=== PATIENT | male | born 1960 | race Caucasian/White ===

== ENCOUNTER 2019-06-15 13:36 | Emergency (ER) | payer OTHER ==
[~2019-06-15] VITALS: Ht 172.7 cm; Wt 104.3 kg
--- NOTE | 2019-06-15 13:49 | NUR ---
PATIENT WAS MSE BY DR ZIEGLER IN ROOM 02B. PATIENT A & O X4.
[2019-06-15] MEDS ORDERED: IBUPROFEN 800 MG TABLET PO ONE (14:00)
[2019-06-15] MEDS ORDERED: IBUPROFEN 800 MG TABLET ONE (14:04)
--- NOTE | 2019-06-15 14:15 | NUR ---
Android Programmer assumes care, AOx4, respiration: easy, pending results and disposition, NAD
--- NOTE | 2019-06-15 15:15 | NUR ---
Patient discharged to home in stable conditon & steady gait. Written and verbal after care instructions given to patient. Patient verbalizes understanding & compliance of instructions.
== END 2019-06-15 15:16 | disposition home or self-care (01) ==
LOC: ER 13:36
DX: S20.211A Contusion of right front wall of thorax, initial encounter (principal); E11.9 Type 2 diabetes mellitus without complications; W01.0XXA Fall on same level from slipping, tripping and stumbling without subsequent striking against object, initial encounter; Y93.89 Activity, other specified; Y92.89 Other specified places as the place of occurrence of the external cause; Y99.8 Other external cause status
CPT/HCPCS: 71101; A4663

== ENCOUNTER 2019-08-15 08:33 | Emergency (ER) | payer OTHER ==
[~2019-08-15] VITALS: Ht 172.7 cm; Wt 104.3 kg
[2019-08-15] MEDS ORDERED: DOCUSATE SODIUM 100 MG/10 ML LIQUID UDC ONE (09:07)
--- NOTE | 2019-08-15 09:14 | NUR ---
PT IS IN ROOM #2B. DR SANTORO EVALUATED THE PT.
[2019-08-15] MEDS ORDERED: DOCUSATE SODIUM 100 MG/10 ML LIQUID UDC OT ONE (09:15)
--- NOTE | 2019-08-15 09:51 | NUR ---
PT's LEFT EAR WAS IRRIGATED WITH WARM NS 0.9% ACCORDING TO DR YVAN GOULD. PT TOLERATED TO PROCEDURE WITHOUT COMPLICATIONS.
--- NOTE | 2019-08-15 10:02 | NUR ---
PT WAS D/C'D TO HOME AFTER DR SANTORO EVALUATION. D/C INSTRUCTIONS GIVEN TO THE PT BY DR SANTORO.
[2019-08-15 10:03] VITALS: BP 138/81
== END 2019-08-15 10:04 | disposition home or self-care (01) ==
LOC: ER 08:33
DX: H61.22 Impacted cerumen, left ear (principal); E11.9 Type 2 diabetes mellitus without complications
CPT/HCPCS: A4217; A4663

== ENCOUNTER 2019-08-28 05:44 | Emergency (ER) | payer OTHER ==
[~2019-08-28] VITALS: Ht 170.2 cm; Wt 106.6 kg
[2019-08-28] MEDS ORDERED: [UNRECOGNIZED DRUG - REMARK] (05:53)
[2019-08-28] MEDS ORDERED: [UNRECOGNIZED DRUG - REMARK] (05:53)
[2019-08-28] MEDS ORDERED: GABA-534 PO (05:53)
--- NOTE | 2019-08-28 05:58 | NUR ---
DR MENDENHALL AT BEDSIDE FOR MSE.
[2019-08-28] MEDS ORDERED: diphenhydrAMINE 50 MG/1 ML VIAL IV ONE (06:00)
[2019-08-28] MEDS ORDERED: methylPREDNISolone SOD SUCC 125 MG/2 ML VIAL IV ONE (06:00)
[2019-08-28] MEDS ORDERED: diphenhydrAMINE 50 MG/1 ML VIAL ONE (06:08)
[2019-08-28] MEDS ORDERED: methylPREDNISolone SOD SUCC 125 MG/2 ML VIAL ONE (06:08)
[2019-08-28] MEDS ORDERED: EPINEPHRINE-PF 1:1000 1 MG/ML AMPUL SQ ONE (06:15)
[2019-08-28] MEDS ORDERED: EPINEPHRINE 1 MG/1 ML AMP ONE (06:24)
--- NOTE | 2019-08-28 07:24 | NUR ---
IV removed. Catheter intact and site benign. Pressure and 4x4 gauze applied to site. No bleeding noted. Patient discharged to home in stable condition and steady gait. Written and verbal after care instructions given to patient. Patient verbalized understanding & compliance of instructions.
[2019-08-31] MEDS ORDERED: PRED20TA PO (16:57)
[2019-08-31] MEDS ORDERED: CLIN300C11 PO (16:57)
== END 2019-08-28 07:26 | disposition home or self-care (01) ==
LOC: ER 05:49
DX: T78.3XXA Angioneurotic edema, initial encounter (principal); I10 Essential (primary) hypertension; E11.9 Type 2 diabetes mellitus without complications; E78.5 Hyperlipidemia, unspecified; Z88.0 Allergy status to penicillin; Z79.899 Other long term (current) drug therapy
CPT/HCPCS: 96374; 96375; 99283; J0171; J1200; J2930; A4663

== ENCOUNTER 2019-08-31 16:41 | Emergency (ER) | payer OTHER ==
[~2019-08-31] VITALS: Ht 172.7 cm; Wt 106.6 kg
[2019-08-31] MEDS ORDERED: DEXAMETHASONE 4 MG TABLET ONE (17:26)
[2019-08-31] MEDS ORDERED: DEXAMETHASONE 0.5 MG/5 ML LIQ UDC PO ONE (17:30)
--- NOTE | 2019-08-31 17:31 | NUR ---
PATIENT WAS SEEN BY . HE IS A/A/O X3 IN NO DISTRESS. MEDICATION GIVEN ORDERED. DC AND FOLLOW UP INSTRUCTIONS GIVEN AND EXPLAINED TO PATIENT WHO STATES HE UNDERSTANDS ALL INSTRUCTIONS
== END 2019-08-31 17:35 | disposition home or self-care (01) ==
LOC: ER 16:42
DX: J02.9 Acute pharyngitis, unspecified (principal); Z60.2 Problems related to living alone; Z79.899 Other long term (current) drug therapy; Z88.1 Allergy status to other antibiotic agents
CPT/HCPCS: 99282; J8540; A4663

== ENCOUNTER 2020-02-04 05:43 | Emergency (ER) | payer MEDICARE, OTHER ==
[~2020-02-04] VITALS: Ht 170.2 cm; Wt 104.3 kg
[~2020-02-04 05:43] MED LIST: CLIN300C11 PO; GABA-534 PO; PRED20TA PO; [UNRECOGNIZED DRUG - REMARK]; [UNRECOGNIZED DRUG - REMARK]
[2020-02-04] MEDS ORDERED: METF-442 PO (05:56)
[2020-02-04] MEDS ORDERED: [UNRECOGNIZED DRUG - REMARK] (05:56)
--- NOTE | 2020-02-04 06:00 | NUR ---
Dr. Spann at bedside for MSE
--- NOTE | 2020-02-04 06:13 | NUR ---
Xray at bedside
[2020-02-04 06:23] LABS: BASOPHILS % (AUTO) 0.7 % (0.0-2.0); EOSINOPHILS # (AUTO) 0.3 K/uL (0.0-0.7); EOSINOPHILS % (AUTO) 4.9 % (0.0-7.0); HEMOGLOBIN 14.9 g/dL (12.5-16.3); LYMPHOCYTES # (AUTO) 2.2 K/uL (20.0-40.0); LYMPHOCYTES % (AUTO) 39.9 % (20.5-51.5); MEAN CORPUSCULAR HEMOGLOBIN 29.7 uug (23.8-33.4); MEAN CORPUSCULAR HGB CONC 35 g/dL (32.5-36.3); MEAN CORPUSCULAR VOLUME 85.6 fL (73.0-96.2); MONOCYTES # (AUTO) 0.6 K/uL (2.0-10.0); MONOCYTES % (AUTO) 10.7 % (0.0-11.0); NEUTROPHILS # (AUTO) 2.4 K/uL (1.8-8.9); NEUTROPHILS % (AUTO) 43.8 % (38.5-71.5); PLATELET COUNT (AUTO) 284 K/uL (152-348); RED BLOOD CELL COUNT(AUTO) 5.02 MIL/uL (4.06-5.63); WHITE BLOOD COUNT (AUTO) 5.5 K/uL (3.6-10.2)
--- NOTE | 2020-02-04 06:24 | NUR ---
Pt BS 216. notified. No new orders at this time
[2020-02-04] MEDS ORDERED: VANCOMYCIN 1G/D5W 200 ML PIGGYBACK IV ONE (06:30)
[2020-02-04 06:31] LABS: CREATININE 1.2 mg/dL (0.6-1.3); POTASSIUM 4.2 mmol/L (3.5-5.1)
[2020-02-04] MEDS ORDERED: VANCOMYCIN IV 200 ML ONE (06:32)
[2020-02-04 06:45] LABS: BILIRUBIN,DIRECT 0.2 mg/dL (0.0-0.2); BILIRUBIN,TOTAL 1.1 mg/dL (0.2-1.0); TOTAL PROTEIN, SERUM 7.7 g/dL (6.4-8.2)
--- NOTE | 2020-02-04 07:07 | NUR ---
report given boubacar lr
[2020-02-04] MEDS ORDERED: NEOMY/BACITRA/POLYMYXIN B OINT UD PACKET TP ONE ×2 (07:46→08:00)
--- NOTE | 2020-02-04 07:56 | NUR ---
IV removed. Catheter intact and site benign. Pressure and 4x4 gauze applied to site. No bleeding noted. Patient discharged to home in stable condition. Written and verbal after care instructions given. Patient verbalizes understanding & compliance of instructions. Stressed follow up with his primary doctor or return to ER for worsening s/s.
== END 2020-02-04 08:01 | disposition home or self-care (01) ==
LOC: ER 05:48
DX: L03.115 Cellulitis of right lower limb (principal); L97.318 Non-pressure chronic ulcer of right ankle with other specified severity; S90.561S Insect bite (nonvenomous), right ankle, sequela; R03.0 Elevated blood-pressure reading, without diagnosis of hypertension; E78.5 Hyperlipidemia, unspecified; E11.9 Type 2 diabetes mellitus without complications; Z79.4 Long term (current) use of insulin
CPT/HCPCS: 36415; 73610; 80048; 80076; 82962; 85025; 85651; 86140; 96365; 99284; J3370; A4663

== ENCOUNTER 2020-02-06 06:14 | Emergency (ER) | payer MEDICARE, OTHER ==
[~2020-02-06 06:14] MED LIST changes: -CLIN300C11 PO; +METF-442 PO; -PRED20TA PO; +[UNRECOGNIZED DRUG - REMARK]
== END 2020-02-06 06:21 | disposition left against medical advice (07) ==
LOC: ER 06:16
DX: Z75.3 Unavailability and inaccessibility of health-care facilities (principal)

== ENCOUNTER 2020-04-29 13:57 | Emergency (ER) | payer MEDICARE, OTHER ==
[~2020-04-29] VITALS: Ht 170.2 cm; Wt 106.6 kg
--- NOTE | 2020-04-29 13:57 | NUR ---
Patient is AOx4, walked in our ER department, shouting loudly in the ER registration window, c/o chest pains and abdominal pains after eating lunch today. Patient was immediately escorted to ER bed 4A, placed on continuous cardiac, BP & spO2 monitors w/alarms set, on & audible.
[2020-04-29] MEDS ORDERED: LIDOCAINE VISCUS 2% 15 ML UDC ONE (14:10)
--- NOTE | 2020-04-29 14:12 | NUR ---
Patient is refusing blood draw@the moment. explained to patient the urgency of the blood draw.
[2020-04-29] MEDS ORDERED: MAG HYDROX/AL HYDROX/SIMETH 30 ML LIQUID UDC ONE (14:13)
[2020-04-29] MEDS ORDERED: ONDANSETRON 4 MG/2 ML VIAL ONE (14:13)
[2020-04-29] MEDS ORDERED: FAMOTIDINE. 20 MG/2 ML VIAL IV ONE ×2 (14:15→14:17)
[2020-04-29] MEDS ORDERED: ONDANSETRON 4 MG/2 ML VIAL IV ONE (14:15)
[2020-04-29] MEDS ORDERED: MORPHINE SULFATE 4 MG/1 ML DISP.SYRIN IV ONE (14:15)
[2020-04-29] MEDS ORDERED: MAG HYDROX/AL HYDROX/SIMETH 30 ML LIQUID UDC PO ONE (14:15)
[2020-04-29] MEDS ORDERED: LIDOCAINE VISCUS 2% 15 ML UDC MM ONE (14:15)
[2020-04-29] MEDS ORDERED: MORPHINE SULFATE 4 MG/1 ML DISP.SYRIN ONE (14:17)
[2020-04-29 14:33] LABS: BASOPHILS % (AUTO) 0.5 % (0.0-2.0); EOSINOPHILS # (AUTO) 0.2 K/uL (0.0-0.7); EOSINOPHILS % (AUTO) 2.8 % (0.0-7.0); HEMATOCRIT 46.4 % (36.7-47.1); HEMOGLOBIN 16.2 g/dL (12.5-16.3); LYMPHOCYTES # (AUTO) 1.1 K/uL (20.0-40.0); LYMPHOCYTES % (AUTO) 13.1 % (20.5-51.5); MEAN CORPUSCULAR HEMOGLOBIN 30.1 uug (23.8-33.4); MEAN CORPUSCULAR HGB CONC 35 g/dL (32.5-36.3); MEAN CORPUSCULAR VOLUME 86.5 fL (73.0-96.2); MONOCYTES # (AUTO) 0.1 K/uL (2.0-10.0); MONOCYTES % (AUTO) 0.9 % (0.0-11.0); NEUTROPHILS # (AUTO) 6.7 K/uL (1.8-8.9); NEUTROPHILS % (AUTO) 82.7 % (38.5-71.5); PLATELET COUNT (AUTO) 245 K/uL (152-348); RED BLOOD CELL COUNT(AUTO) 5.36 MIL/uL (4.06-5.63); WHITE BLOOD COUNT (AUTO) 8.2 K/uL (3.6-10.2)
[2020-04-29 14:38] LABS: CREATININE 1.4 mg/dL (0.6-1.3); POTASSIUM 3.3 mmol/L (3.5-5.1)
[2020-04-29 14:41] LABS: *BILIRUBIN,URIN NEGATIVE (NEGATIVE); *BLOOD, URINE NEGATIVE (NEGATIVE); *CLARITY,URINE CLEAR (CLEAR); *COLOR,URINE YELLOW (YELLOW); *KETONES,URINE TRACE (NEGATIVE); *UROBILINOGEN,URINE 0.2 E.U./dl (NORMAL); LEUKOCYTE ESTERASE ,URINE NEGATIVE (NEGATIVE); NITRITE, URINE NEGATIVE (NEGATIVE); UGLUCOSE 2+ (NEGATIVE)
[2020-04-29] MEDS ORDERED: KETOROLAC TROMETHAMINE 15 MG INJ IVP ONE (14:45)
--- NOTE | 2020-04-29 14:45 | NUR ---
Patient is frequently on his personal cellphone while diagnostic exams are being done. Comfort and safety measures maintained.
[2020-04-29] MEDS ORDERED: KETOROLAC TROMETHAMINE 15 MG INJ ONE (14:47)
[2020-04-29 14:54] LABS: *AMPHETAMINE, URINE NEGATIVE (NEGATIVE); *CANNABINOID, URINE NEGATIVE (NEGATIVE); *COCCAINE, URINE NEGATIVE (NEGATIVE); *OPIATE, URINE POSITIVE (NEGATIVE); *PHENCYCLIDINE SCREEN,URINE NEGATIVE (NEGATIVE)
[2020-04-29] MEDS ORDERED: IV NORMAL SALINE 1000 ML BAG IV ONE (15:00)
[2020-04-29 15:01] LABS: BILIRUBIN,DIRECT 1.2 mg/dL (0.0-0.2); BILIRUBIN,TOTAL 2.3 mg/dL (0.2-1.0); TOTAL PROTEIN, SERUM 8.1 g/dL (6.4-8.2)
--- NOTE | 2020-04-29 15:08 | NUR ---
Patient wants to go home. [email or web address] explaining to patient about possible complications, up to and including , which could occur as a result of leaving the hospital at this time.
--- NOTE | 2020-04-29 15:09 | NUR ---
Extra warm blankets and pillows on. Patient feels a little better and wants to go home.
--- NOTE | 2020-04-29 15:29 | NUR ---
Patient still does not wish to proceed with medical care recommended by Dr. Francis. Patient was given repeated verbal information and written iformation related to possible complications, up to and including , which could occur as a result of leaving the hospital at this time. Patient verbalized understanding of risks involved due to leaving against medical advice. Patient has signed AMA form.
[2020-04-29] MEDS ORDERED: TAMS-3 PO (17:13)
[2020-04-29] MEDS ORDERED: HYDR12.55 PO (17:13)
[2020-04-29] MEDS ORDERED: ATOR40TA PO (17:13)
[2020-04-29 18:32] LABS: BACTERIA,URINE FEW /HPF (NONE SEEN); RBC,URINE 0-3 /HPF (0-3); SQUAMOUS EPITHELIAL CELL,UR FEW /HPF (NONE SEEN); WBC,URINE 0-3 /HPF (0-3)
[2020-04-29] MEDS ORDERED: POTASSIUM CHLORIDE 20 MEQ TAB.PRT.SR PO ONE (20:45)
== END 2020-04-29 15:29 | disposition left against medical advice (07) ==
LOC: ER 13:57
DX: K85.90 Acute pancreatitis without necrosis or infection, unspecified (principal); E11.65 Type 2 diabetes mellitus with hyperglycemia; Z79.4 Long term (current) use of insulin; E78.5 Hyperlipidemia, unspecified; E87.1 Hypo-osmolality and hyponatremia; E87.6 Hypokalemia; R74.01 Elevation of levels of liver transaminase levels; E87.8 Other disorders of electrolyte and fluid balance, not elsewhere classified; E66.9 Obesity, unspecified; Z68.36 Body mass index [BMI] 36.0-36.9, adult; Z87.891 Personal history of nicotine dependence; F11.11 Opioid abuse, in remission
CPT/HCPCS: 36415; 71045; 76705; 80048; 80076; 80307; 81001; 83690; 83880; 84484; 85025; 93005; 96374; 96375; 99285; J1885; J2270; J2405; J3490; 70030-TC; A4663; J7030

== ENCOUNTER 2020-04-29 17:03 | Inpatient (IN) | payer MEDICARE, OTHER ==
[~2020-04-29] VITALS: Ht 170.2 cm; Wt 106.6 kg
[2020-04-29] MEDS ORDERED: ATOR40TA PO (17:13)
[2020-04-29] MEDS ORDERED: TAMS-3 PO (17:13)
[2020-04-29] MEDS ORDERED: HYDR12.55 PO (17:13)
--- NOTE | 2020-04-29 17:29 | NUR ---
Patient is resting comfortably on gurney with eyes closed. Lights dimmed. Extra warm blankets on. Oral swabs provided. NPO maintained. Patient will be admitted to telemetry room 323 , under the care of [facility] hospitalist Dr. rBown. Belonging List completed. COVID -19 swab collected and sent. Nurse Maki accepted nursing report@[id number].
[2020-04-29] MEDS ORDERED: IV LACTATED RINGERS SOLUTION 1,000 ML BAG IV ONE (17:30)
[2020-04-29] MEDS ORDERED: ONDANSETRON 4 MG/2 ML VIAL IV ONE (17:30)
[2020-04-29] MEDS ORDERED: MORPHINE SULFATE 4 MG/1 ML DISP.SYRIN IV ONE (17:30)
[2020-04-29] MEDS ORDERED: ONDANSETRON 4 MG/2 ML VIAL ONE (17:51)
[2020-04-29] MEDS ORDERED: MORPHINE SULFATE 4 MG/1 ML DISP.SYRIN ONE (17:51)
[2020-04-29] MEDS ORDERED: MAGNESIUM HYDROXIDE 30 ML LIQUID UDC PO PRN (18:00)
[2020-04-29] MEDS ORDERED: ONDANSETRON 4 MG/2 ML VIAL IV PRN (18:00)
[2020-04-29] MEDS ORDERED: ACETAMINOPHEN 325 MG TABLET PO PRN (18:00)
[2020-04-29] MEDS ORDERED: IV NS 1000 ML 1,000 ML IV SCH (18:00)
[2020-04-29] MEDS ORDERED: HYDROCODONE/APAP 5-325MG TABLET PO PRN (18:00)
[2020-04-29] MEDS ORDERED: Z GUARD REMEDY PASTE 57 GM TUBE TOP PRN (18:00)
--- NOTE | 2020-04-29 18:20 | NUR ---
Received patient on the floor via a gurney. Patient shows no signs of distress at this time. Belongings lists done and signed and vital signs taken. Patient's BP is initially 167/103 with a HR of 110, upon retake vitals are 166/97 HR 110 oxygen saturation 96% and temperature 100.8. Will start cooling measures with ice packs and i will check eMAR for antipyretics.. Will start IV infusion of NS. Will continue to monitor and endorse to oncoming nurse.
[2020-04-29 18:33] VITALS: BP 166/97
[2020-04-29] MEDS: IV NS 1000 ML 1,000 ML IV PRN (18:45)
--- NOTE | 2020-04-29 19:58 | NUR ---
Patient's blood glucose was 409 in ER no coverage was done. Made DR Brown aware. His orders are to put Accucheck Q6h but no slide in scale. Will clarify order and endorse to oncoming nurse.
[2020-04-29 20:20] VITALS: BP 176/92
[2020-04-29] MEDS ORDERED: POTASSIUM CHLORIDE 20 MEQ TAB.PRT.SR PO ONE (21:00)
[2020-04-29] MEDS: ATORVASTATIN 40 MG TABLET PO SCH (21:24)
[2020-04-29] MEDS: BLOOD SUGAR DIAGNOSTIC 1 EACH STRIP VI SCH ×2 (21:24→23:53)
[2020-04-29] MEDS: GABAPENTIN 300 MG CAPSULE PO SCH (21:24)
[2020-04-29] MEDS: MORPHINE SULFATE 2 MG/1 ML DISP.SYRIN IV PRN (21:31)
--- NOTE | 2020-04-29 23:09 | NUR ---
Received pt resting in bed. AAO x4. No acute distress noted. Blood sugar 296, BP 176/ 92, HR 99. Notified Dr. Brown. As per MD, no new order but to watch and give pain meds as ordered. Pt is NPO except meds. Due meds given as ordered. IV on right hand #20, IVF NS 100 mL/hr. Safety measures maintained. Call light and personal items within reach. Will continue to monitor.
[2020-04-29 23:51] VITALS: BP 115/70
[2020-04-30 05:00] VITALS: BP 113/57
[2020-04-30] MEDS: BLOOD SUGAR DIAGNOSTIC 1 EACH STRIP VI SCH ×4 (05:26→23:59)
[2020-04-30] MEDS: IV NS 1000 ML 1,000 ML IV PRN ×2 (05:26→20:22)
--- NOTE | 2020-04-30 05:39 | NUR ---
Pt kept NPO except meds throughout the night. Monitored blood sugar and BP. BS continues to be elevated, BP stable. No complain of nausea/vomiting. All needs attended to promptly. Addendum: 04/30/20 at 0614 by Alejandra Escobar RN MRI checklist done
[2020-04-30 07:26] LABS: CREATININE 1.5 mg/dL (0.6-1.3); PHOSPHOROUS 3.8 mg/dL (2.5-4.9); POTASSIUM 5.3 mmol/L (3.5-5.1)
--- NOTE | 2020-04-30 07:30 | NUR ---
Received patient resting in bed. Awake alert and oriented times 4. No signs of distress noted at this time. Patient is currently NPO awaiting transport to [place] for MRCP. MRI checklist done. Safety precautions in place with call lights and belongings within reach. Will continue to monitor.
[2020-04-30 07:33] LABS: BASOPHILS % (AUTO) 0.1 % (0.0-2.0); EOSINOPHILS # (AUTO) 0.1 K/uL (0.0-0.7); EOSINOPHILS % (AUTO) 0.5 % (0.0-7.0); HEMATOCRIT 41.1 % (36.7-47.1); HEMOGLOBIN 14.2 g/dL (12.5-16.3); LYMPHOCYTES # (AUTO) 0.6 K/uL (20.0-40.0); LYMPHOCYTES % (AUTO) 3.5 % (20.5-51.5); MEAN CORPUSCULAR HEMOGLOBIN 29.9 uug (23.8-33.4); MEAN CORPUSCULAR HGB CONC 35 g/dL (32.5-36.3); MEAN CORPUSCULAR VOLUME 86.6 fL (73.0-96.2); MONOCYTES # (AUTO) 1.1 K/uL (2.0-10.0); MONOCYTES % (AUTO) 6.5 % (0.0-11.0); NEUTROPHILS # (AUTO) 15.1 K/uL (1.8-8.9); NEUTROPHILS % (AUTO) 89.4 % (38.5-71.5); PLATELET COUNT (AUTO) 194 K/uL (152-348); RED BLOOD CELL COUNT(AUTO) 4.75 MIL/uL (4.06-5.63); WHITE BLOOD COUNT (AUTO) 16.9 K/uL (3.6-10.2)
[2020-04-30] MEDS: TAMSULOSIN HCL 0.4 MG CAP.SR.24H PO SCH (08:20)
[2020-04-30] MEDS: METFORMIN HCL 500 MG TABLET PO SCH ×2 (08:20→18:09)
[2020-04-30] MEDS: HYDROCHLOROTHIAZIDE 12.5 MG CAPSULE PO SCH (08:20)
[2020-04-30 12:00] VITALS: BP 128/71
--- NOTE | 2020-04-30 15:00 | NUR ---
Patient's IV occluded. Removed IV and replaced on the left forearm. Will continue to infused fluids.
[2020-04-30 16:00] VITALS: BP 139/77
--- NOTE | 2020-04-30 17:15 | NUR ---
Patient refuse the HIDA scan ordered by Dr Brown. He refused to sign consent. When the nurse from nuclear medicine when it the room to explain the process the patient still refused. Made MD aware. He want to advance diet as tolerated and we will reassess patient for possible DC in the morning. Will continue to monitor
[2020-04-30] MEDS: GABAPENTIN 300 MG CAPSULE PO SCH (20:10)
[2020-04-30] MEDS: ATORVASTATIN 40 MG TABLET PO SCH (20:10)
[2020-04-30] MEDS: MORPHINE SULFATE 2 MG/1 ML DISP.SYRIN IV PRN (20:21)
--- NOTE | 2020-04-30 20:45 | NUR ---
Received patient resting in bed,alert and oriented x4.On RA.No s/s of distress noted at this time.C/o abdominal pain.Medicated with PRN med with relief.IV on left forearm 20 g,patent and intact with NS 0.9 % running well at 100cc/m.Tolerated well.Call light and belonging with in reach.Safety measures in place.
[2020-04-30 20:49] VITALS: BP 152/95
--- NOTE | 2020-05-01 01:57 | NUR ---
Patient's IV pulled out.Refused to be re-inserted a new IV line.Risk and benefits explained x3.Patient still refused.Per Patient he's ok for tonight and he already had enough of IV fluids.Will continue to monitor.
[2020-05-01] MEDS: BLOOD SUGAR DIAGNOSTIC 1 EACH STRIP VI SCH (06:06)
[2020-05-01 06:23] VITALS: BP 134/78
--- NOTE | 2020-05-01 06:31 | NUR ---
Patient slept intermittently through out the night.Bs checked .Patient still refused for IV insertion.Needs anticipated and met accordingly.Will endorsed to oncoming shift.
[2020-05-01] MEDS: METFORMIN HCL 500 MG TABLET PO SCH (08:00)
[2020-05-01] MEDS: TAMSULOSIN HCL 0.4 MG CAP.SR.24H PO SCH ×2 (09:00→09:17)
[2020-05-01] MEDS: HYDROCHLOROTHIAZIDE 12.5 MG CAPSULE PO SCH (09:00)
--- NOTE | 2020-05-01 09:17 | NUR ---
Per [facility], hold Microzide for now, but can give Flomax. Patient is for HIDA scan.
[2020-05-01 09:30] VITALS: BP 169/105
--- NOTE | 2020-05-01 09:31 | NUR ---
Called Dr. Brown regarding patient's BP 169/105, 171/97, 177/107. Dr. Brown ordered to take BP manually and if still higher that 160/90, order Hydralazine 25mg once
--- NOTE | 2020-05-01 10:00 | NUR ---
SD holly came up to take patient for HIDA scan but patient refused again. Multiple attempts to explain the importance, risks and benefits but patient still refused. Informed Dr. Brown. explained this morning about the importance of the test and initially patient agreed.
--- NOTE | 2020-05-01 10:15 | NUR ---
Pt refused pic of right ankle
--- NOTE | 2020-05-01 10:20 | NUR ---
Patient left AMA ambulatory AOx4, no SOB or distress at this time. Explained risks and benefits, verbalized understanding. AMA papers signed and belongings list signed and all accounted for. ID band removed. Education also given.
== END 2020-05-01 10:25 | disposition left against medical advice (07) | DRG 438 ==
LOC: ER 17:05 → TELE3 18:00 → MEDSURG3 20:04
PROVIDERS: ADMIT Family Medicine; ATTEND Family Medicine
DX: K85.90 Acute pancreatitis without necrosis or infection, unspecified (principal); N17.0 Acute kidney failure with tubular necrosis; E87.1 Hypo-osmolality and hyponatremia; E11.65 Type 2 diabetes mellitus with hyperglycemia; E66.9 Obesity, unspecified; E78.5 Hyperlipidemia, unspecified; E87.6 Hypokalemia; I10 Essential (primary) hypertension; Z79.84 Long term (current) use of oral hypoglycemic drugs; Z68.36 Body mass index [BMI] 36.0-36.9, adult; E80.6 Other disorders of bilirubin metabolism; R93.5 Abnormal findings on diagnostic imaging of other abdominal regions, including retroperitoneum; R79.89 Other specified abnormal findings of blood chemistry; K82.8 Other specified diseases of gallbladder
CPT/HCPCS: 36415; 74181; 83690; 83735; 84100; 85025; A4663; G0378; J2270; J2405; J7030; J7120